=== PATIENT | male | born 1950 | race African-American/Black ===

== ENCOUNTER 2018-08-28 13:30 | Emergency (ER) | payer MEDICARE, SELFPAY ==
[2018-08-28 14:25] LABS: Anion Gap 13 mmol/L (10-20); BUN (Urea Nitrogen) 22 mg/dL (8.4-25.7); Calc. Creatinine Clearance 0 mL/min (70-130); Calcium 9.5 mg/dL (7.8-10.44); Carbon Dioxide 26 mmol/L (23-31); Chloride 97 mmol/L (98-107); Estimated GFR-MDRD 58; Glucose 442 mg/dL (80-115); Potassium 4.4 mmol/L (3.5-5.1); Sodium 132 mmol/L (136-145)
== END 2018-08-28 14:49 | disposition home or self-care (01) ==
LOC: NAV ERS 13:30
DX: E11.65 Type 2 diabetes mellitus with hyperglycemia (principal); E78.5 Hyperlipidemia, unspecified; I10 Essential (primary) hypertension; Z79.84 Long term (current) use of oral hypoglycemic drugs
CPT/HCPCS: 36416; 80048; 99283

== ENCOUNTER 2019-09-27 18:23 | Emergency (ER) | payer MEDICARE, OTHER ==
[2019-09-27 19:00] LABS: #Basophils 0.1 thou/uL (0.0-0.2); #Eosinphils 0.1 thou/uL (0.0-0.7); #Monocytes 0.8 thou/uL (0.11-0.59); #Neutrophils 5.4 thou/uL (1.40-6.50); %Basophils 1.4 % (0.0-1.0); %Eosinophils 0.8 % (0.0-10.0); %Lymphocytes 23.6 % (21.0-51.0); %Monocytes 9.7 % (0.0-10.0); %Neutrophils 64.6 % (42.0-75.0); Hemoglobin 8.7 g/dL (14.0-18.0); Mean Corpuscular HGB CONC 30.1 g/dL (32.0-36.0); Mean Corpuscular Hemoglobin 25.9 pg (27.0-31.0); Mean Platelet Volume 6.5 fL (7.4-10.4); Platelet Count 290 thou/uL (130-400); RBC Distribution Width 14.6 % (11.5-14.5); Red Blood Cell (RBC) Count 3.37 mill/uL (4.70-6.10); White Blood Cell (WBC) Count 8.4 thou/uL (4.8-10.8)
[2019-09-27 19:16] LABS: ALT (SGPT) 14 U/L (8-55); AST (SGOT) 11 U/L (5-34); Albumin 2.9 g/dL (3.4-4.8); Alkaline Phosphatase 79 U/L (40-110); Anion Gap 14 mmol/L (10-20); BUN (Urea Nitrogen) 20 mg/dL (8.4-25.7); Bilirubin, Total 0.2 mg/dL (0.2-1.2); Calc. Creatinine Clearance 0 mL/min (70-130); Calcium 8.5 mg/dL (7.8-10.44); Carbon Dioxide 25 mmol/L (23-31); Chloride 101 mmol/L (98-107); Estimated GFR-MDRD 58; Globulin 4.1 g/dL (2.4-3.5); Glucose 240 mg/dL (83-110); Potassium 3.5 mmol/L (3.5-5.1); Sodium 136 mmol/L (136-145)
[2019-09-27 19:30] LABS: Bilirubin Negative (Negative); Blood, Urine Large (Negative); Clarity Cloudy (Clear); Glucose, Urine (Dipstick) 250 mg/dL (Negative); Leukocyte Small (Negative); Nitrite Negative (Negative); Protein, Urine (Dipstick) > or equal to 300 mg/dL (Neg-Trace); Urobilinogen 0.2 mg/dL (Less than 2)
[2019-09-27 19:41] LABS: Bacteria/HPF 3+ HPF (None Seen); Squamous Epithelial 0-3 HPF (0-3); WBC/HPF Greater Than 50 HPF (0-3)
[2019-09-27] MEDS ORDERED: Bacitracin 1 PK ONE (19:45)
--- NOTE | 2019-09-30 07:12 | RAD ---
Radiograph left ankle 3 views: HISTORY: 69-year-old male with fever and left ankle swelling. Rule out osteomyelitis. FINDINGS: There is diffuse soft tissue edema. No fracture or dislocation, or high-grade DJD. Talar dome is main tained. No permeative lesion is identified. No periostitis. No subcutaneous emphysema. IMPRESSION: 1. Diffuse soft tissue edema. 2. No rebecca bone destruction identified
== END 2019-09-27 20:01 | disposition home or self-care (01) ==
LOC: NAV ERS 18:23
DX: E11.622 Type 2 diabetes mellitus with other skin ulcer (principal); L89.529 Pressure ulcer of left ankle, unspecified stage; E78.5 Hyperlipidemia, unspecified; I10 Essential (primary) hypertension; Z79.899 Other long term (current) drug therapy; Z79.891 Long term (current) use of opiate analgesic; Z79.84 Long term (current) use of oral hypoglycemic drugs
CPT/HCPCS: 51701; 80053; 81003; 81015; 83605; 85025; 87040

== ENCOUNTER 2020-05-02 16:54 | Emergency (ER) | payer MEDICARE ==
--- NOTE | 2020-05-02 17:43 | RAD ---
XR Abdomen 2 View/1 View Cxr HISTORY: Chest pain, abdominal pain COMPARISON: Chest radiographs of 02/19/2020 and 02/20/2020 FINDINGS: The heart size is stable. The left lung is clear. There is a moderate-sized right pleural e ffusion. No free air or differential fluid levels are seen. The bowel gas pattern is unremarkable. There are d egenerative changes in the spine. No suspicious calcifications are identified.
== END 2020-05-02 17:49 | disposition home or self-care (01) ==
LOC: NAV ERS 16:54
DX: K59.00 Constipation, unspecified (principal); E11.9 Type 2 diabetes mellitus without complications; E78.5 Hyperlipidemia, unspecified; I10 Essential (primary) hypertension; Z79.899 Other long term (current) drug therapy
CPT/HCPCS: 74022